=== PATIENT | male | born 1945 | race Caucasian/White ===

== ENCOUNTER 2021-04-01 07:07 | Day surgery (SDC) | payer OTHER ==
[~2021-04-01 07:07] MED LIST: COZAAR25 MG PO; D3 + K2 DOTS 11 EACH PO; MEDROL4 MG PO; OXYC1TAB9 PO; TOPROL XL25 M1 PO; TURMERIC 500 M1 EACH PO; VITAMIN E400 UNI7 PO; WELLBUTRIN XL300 MG PO; XARELTO20 M1 PO; ZOCOR40 MG PO
[2021-04-01] MEDS ORDERED: PERCOCET 5-3251 EACH PO (14:06)
[2021-04-01] MEDS ORDERED: NEURONTIN300 MG PO (14:09)
[2021-04-01] MEDS ORDERED: KETO10TA2 PO (14:10)
[2021-04-01] MEDS ORDERED: DERMOPLAST PAIN78 GM TOP (14:11)
== END 2021-04-01 19:05 | disposition home or self-care (01) ==
LOC: CIR.AMB 07:07 → O/R 08:30 → CIR.AMB 09:30
PROVIDERS: ATTEND Surgery
DX: K64.8 Other hemorrhoids (principal); K64.4 Residual hemorrhoidal skin tags; Z20.822 Contact with and (suspected) exposure to COVID-19

== ENCOUNTER 2021-11-02 06:00 | Day surgery (SDC) | payer OTHER ==
[~2021-11-02 06:00] MED LIST changes: +DERMOPLAST PAIN78 GM TOP; +KETO10TA2 PO; +NEURONTIN300 MG PO; +PERCOCET 5-3251 EACH PO
== END 2021-11-02 11:39 | disposition home or self-care (01) ==
LOC: AMB-ENDOS 06:00
PROVIDERS: ATTEND Surgery
DX: K57.30 Diverticulosis of large intestine without perforation or abscess without bleeding (principal); Z87.19 Personal history of other diseases of the digestive system; Z20.822 Contact with and (suspected) exposure to COVID-19; Z98.0 Intestinal bypass and anastomosis status

== ENCOUNTER 2023-11-10 10:37 | Outpatient (CLI) | payer OTHER | END 2023-11-10 10:39 | disposition home or self-care (01) | LOC: SONOGRAMA 10:37 | PROVIDERS: ATTEND Pathology Anatomic Pathology & Clinical Pathology | DX: D34 Benign neoplasm of thyroid gland (principal); E07.89 Other specified disorders of thyroid; E03.9 Hypothyroidism, unspecified ==

== ENCOUNTER 2024-11-29 16:14 | Outpatient (CLI) | payer OTHER | END 2024-11-29 16:16 | disposition home or self-care (01) | LOC: SONOGRAMA 16:14 | PROVIDERS: ATTEND Pathology Anatomic Pathology & Clinical Pathology | DX: D34 Benign neoplasm of thyroid gland (principal); E04.1 Nontoxic single thyroid nodule ==